=== PATIENT | male | born 1990 | race Asian ===

== ENCOUNTER 2016-07-01 19:52 | Emergency (ER) | payer OTHER ==
[~2016-07-01] VITALS: Ht 193 cm; Wt 90.9 kg
[2016-07-01 20:25] VITALS: BP 121/81; TEMP 97.4
[2016-07-01 22:14] VITALS: PULSE 83
== END 2016-07-01 22:14 | disposition home or self-care (01) ==
LOC: COL.ER 19:52
DX: T23.222A Burn of second degree of single left finger (nail) except thumb, initial encounter (principal); X19.XXXA Contact with other heat and hot substances, initial encounter; Y92.009 Unspecified place in unspecified non-institutional (private) residence as the place of occurrence of the external cause